=== PATIENT | male | born 1970 | race Caucasian/White ===

== ENCOUNTER 2022-11-18 09:22 | Outpatient (CLI) | payer BC, SELFPAY | END 2022-11-18 09:23 | disposition home or self-care (01) | PROVIDERS: PCP Family Medicine; Visit Provider Nurse Practitioner Family | DX: Z00.00 Encounter for general adult medical examination without abnormal findings (principal); R03.0 Elevated blood-pressure reading, without diagnosis of hypertension; Z12.5 Encounter for screening for malignant neoplasm of prostate; Z13.6 Encounter for screening for cardiovascular disorders | CPT/HCPCS: 80053; 80061; 84153 ==